=== PATIENT | male | born 1945 | race Caucasian/White ===

== ENCOUNTER 2021-06-04 22:50 | Inpatient (IN) | payer OTHER, MEDICARE ==
[~2021-06-04 22:50] MED LIST: Albuterol/Ipratropium 3.0-0.5 MG/3 ML Neb Soln ONE
[2021-06-04 23:47] LABS: CHLORIDE,CL 102 mEq/L (98-106); SODIUM,NA 144 mEq/L (136-145)
[2021-06-04] MEDS ORDERED: Albuterol/Ipratropium 3.0-0.5 MG/3 ML Neb Soln NEB ONE (23:52)
[2021-06-04] MEDS ORDERED: LORazepam 2 MG/ML Syringe IVPUSH ONE (23:52)
--- NOTE | 2021-06-05 00:01 | EDM.PDOC ---
ED HPI GENERAL MEDICAL PROBLEM - General Chief Complaint: General Stated Complaint: Unresponsive Time Seen by Provider: 06/04/21 22:50 Source of Information: Reports: EMS, Family History Limitations: Reports: Altered Mental Status - History of Present Illness INITIAL COMMENTS - FREE TEXT/NARRATIVE: Michael is a 76 year old male who presents to ER from his home with unresponsivene ss. Significant other states they had supper around 1800 and he "was his normal self". Went in to the bedroom to "use his nebulizer". Checked on him several hours later and found him on the floor unresponsive. EMS was called. First responders noted a pulse of 30 on the scene. Called EMS. Custom Feed Mill Operator Helper noted low pulse on intercept, did give him Atropine, pulse now in the 100s. Remains unresponsive enroute per EMS. On arrival to ER, patient's does have eye blinking, not spontaneously. Tachypnea. Arms stiff, shaking. Purse lip breathing. NIH score difficult to test as does not respond to any verbal or painful stimuli. Onset: Today, Sudden Duration: Hour(s):, Constant Location: Reports: Generalized Associated Symptoms: Reports: Weakness, Other (does not respond to command) Treatments USER EXPERIENCE RESEARCHER: Reports: See EMS Report Other Treatments USER EXPERIENCE RESEARCHER: atropine given - Related Data Allergies Allergy/AdvReac Type Severity Reaction Status Date / Time No Known Allergies Allergy Verified 06/04/21 23:17 Home Meds: Home Meds . [Unable to Verify Home Med List] 06/05/21 [History] Past Medical History Cardiovascular History: Reports: High Cholesterol, Hypertension Respiratory History: Reports: COPD Neurological History: Reports: MS Social & Family History - Tobacco Use Tobacco Use Status *Q: Unknown Ever Used Tobacco ED ROS GENERAL - Review of Systems Review Of Systems: Unable To Obtain Reason Not Obtained: patient unresponsive Constitutional: Denies: Fever (SO is not aware of any fevers, cough, chest congestion. Does get short of breath due to COPD. SO reports that he will get anxious and tachypnic when needing a neb.), Chills ED EXAM, GENERAL - Physical Exam Exam: See Below Exam Limited By: Altered Mental Status General Appearance: Obtunded Eye Exam: Bilateral Eye: Other (pupils 3 mm, unresponsive) Ears: Normal External Exam, Normal TMs Nose: Normal Inspection, Normal Mucosa, No Blood Throat/Mouth: Normal Inspection, Normal Oropharynx Head: Normocephalic Neck: Normal Inspection, Supple, Non-Tender Respiratory/Chest: Lungs Clear, Other (tachypnea) Cardiovascular: Tachycardia Peripheral Pulses: 2+: Radial (L), Radial (R) GI/Abdominal: Normal Bowel Sounds, Soft, Other (had emesis prior to arrival) Extremities: No Pedal Edema, Other (arms rigid, shaky. Does not move to command) Neurological: Unresponsive Skin Exam: Pallor Course - Vital Signs Last Recorded V/S: Last Vital Signs Temp 96.9 F 06/04/21 22:56 Pulse 104 H 06/04/21 22:56 Resp 18 06/04/21 22:56 BP 196/121 H 06/04/21 22:56 Pulse Ox 98 06/04/21 22:56 - Orders/Labs/Meds Orders: Active Orders 24 hr Category Date Time Status Chest 1V Frontal [CR] Stat Exams 06/04/21 23:06 Ordered Head wo Cont [CT] Stat Exams 06/04/21 23:06 Ordered C-REACTIVE PROTEIN [CHEM] Stat Lab 06/04/21 23:25 Received COMPREHENSIVE METABOLIC PN,CMP [CHEM] Stat Lab 06/04/21 23:25 Received CORONAVIRUS COVID-19 RAPID [MOLEC] Stat Lab 06/04/21 23:37 Ordered CREATINE KINASE,CK [CHEM] Stat Lab 06/04/21 23:25 Received D-DIMER QUANTITATIVE [COAG] Stat Lab 06/04/21 23:25 Received INR,PT,PROTHROMBIN TIME [COAG] Stat Lab 06/04/21 23:25 Received LACTATE DEHYDROGENASE,LDH [CHEM] Stat Lab 06/04/21 23:25 Received PRO B-TYPE NATRIUR PEPT,BNPPRO [CHEM] Stat Lab 06/04/21 23:25 Received PTT,PARTIAL THROMBOPLSTIN TIME [COAG] Stat Lab 06/04/21 23:25 Received TROPONIN I HIGH SENSITIVITY [CHEM] Stat Lab 06/04/21 23:25 Received EKG 12 Lead [EK] Stat Ther 06/04/21 23:06 Ordered Labs: Laboratory Tests 06/04/21 Range/Units 23:25 WBC 20.9 H* (4.0-11.0) 10^3/uL RBC 4.84 (4.50-6.00) x10^6/uL Hgb 14.4 (14.0-18.0) g/dL Hct 42.8 (42.0-52.0) % MCV 88.4 (83.0-97.0) fL MCH 29.8 (27.0-32.0) pg MCHC 33.6 (32.0-36.0) g/dL RDW Coeff of Wanda 12.5 (11.0-15.0) % Plt Count 330 (150-400) 10^3/uL Immature Gran % (Auto) 0.3 (0.0-4.9) % Neut % (Auto) 87.4 H (41-71) % Lymph % (Auto) 5.4 L (24-44) % [place] % (Auto) 6.4 (0-10) % Eos % (Auto) 0.1 (0-6) % Baso % (Auto) 0.4 (0-1) % Neut # (Auto) 18.27 H (1.80-8.00) x10^3/uL Lymph # (Auto) 1.14 (0.60-5.00) 10^3/uL [place] # (Auto) 1.34 (0.00-1.50) 10^3/uL Eos # (Auto) 0.03 (0.00-1.50) 10^3/uL Baso # (Auto) 0.09 (0.00-0.50) 10^3/uL Immature Gran # (Auto) 0.06 (0.00-0.49) 10^3/uL Meds: Medications Discontinued Medications Generic Name Dose Route Start Last Admin Trade Name Freq PRN Reason Stop Dose Admin Albuterol/Ipratropium Confirm 06/04/21 22:35 Albuterol/Ipratropium 3.0-0.5 Mg/3 Ml Neb Soln Administered 06/04/21 22:36 Dose 3 ml .ROUTE .STK-MED ONE - Re-Assessments/Exams Free Text/Narrative Re-Assessment/Exam: 06/05/21 2250-Patient arrives per EMS unresponsive, eyes blinking spontaneously. No response to command. Tachypnea. Tachycardic now. Significant other here. Had emesis. Oxygen switched to nasal cannula due as sats 100% with nonrebreather mask. Blood pressure high 2300-Unable to test NIH score as unresponsive. 2310-Contacted patient's sister Sharri is who is patient's DPOA. Relates has end stage COPD, MS and does not want extraordinary measures done on the patient. Stroke code orders. 2345-Spoke again with sister and significant other as noted CT scan with blood. Will await full radiology read. Sister wants patient kept comfortable, Code 3. 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) - Discharge Information *PRESCRIPTION DRUG MONITORING PROGRAM REVIEWED*: No *COPY OF PRESCRIPTION DRUG MONITORING REPORT IN PATIENT PANKAJ: No Sepsis Event Note (ED) - Evaluation Sepsis Screening Result: No Definite Risk - Focused Exam Vital Signs: Vital Signs Temp Pulse Resp BP Pulse Ox 06/04/21 22:56 96.9 F 104 H 18 196/121 H 98 - Problem List & Annotations (1) Hemorrhagic cerebrovascular accident (CVA) SNOMED Code(s): 034288162 Code(s): I61.9 - NONTRAUMATIC INTRACEREBRAL HEMORRHAGE, UNSPECIFIED Status: Acute Priority: High Current Visit: Yes - Problem List Review Problem List Initiated/Reviewed/Updated: Yes - My Orders Last 24 Hours: My Active Orders 06/04/21 23:06 Chest 1V Frontal [CR] Stat Head wo Cont [CT] Stat EKG 12 Lead [EK] Stat 06/04/21 23:25 C-REACTIVE PROTEIN [CHEM] Stat COMPREHENSIVE METABOLIC PN,CMP [CHEM] Stat CREATINE KINASE,CK [CHEM] Stat D-DIMER QUANTITATIVE [COAG] Stat INR,PT,PROTHROMBIN TIME [COAG] Stat LACTATE DEHYDROGENASE,LDH [CHEM] Stat PRO B-TYPE NATRIUR PEPT,BNPPRO [CHEM] Stat PTT,PARTIAL THROMBOPLSTIN TIME [COAG] Stat TROPONIN I HIGH SENSITIVITY [CHEM] Stat 06/04/21 23:37 CORONAVIRUS COVID-19 RAPID [MOLEC] Stat - Assessment/Plan Admission H&P: Please use this note as an admission H&P Last 24 Hours: My Active Orders 06/04/21 23:06 Chest 1V Frontal [CR] Stat Head wo Cont [CT] Stat EKG 12 Lead [EK] Stat 06/04/21 23:25 C-REACTIVE PROTEIN [CHEM] Stat COMPREHENSIVE METABOLIC PN,CMP [CHEM] Stat CREATINE KINASE,CK [CHEM] Stat D-DIMER QUANTITATIVE [COAG] Stat INR,PT,PROTHROMBIN TIME [COAG] Stat LACTATE DEHYDROGENASE,LDH [CHEM] Stat PRO B-TYPE NATRIUR PEPT,BNPPRO [CHEM] Stat PTT,PARTIAL THROMBOPLSTIN TIME [COAG] Stat TROPONIN I HIGH SENSITIVITY [CHEM] Stat 06/04/21 23:37 CORONAVIRUS COVID-19 RAPID [MOLEC] Stat Assessment:: Hemorrhagic CVA Plan: Will admit to inpatient for comfort cares. aware of poor outcome, bleed. Sister also informed. Palliative care.
[2021-06-05] MEDS ORDERED: LORazepam 2 MG/ML Syringe ONE (00:07)
[2021-06-05 00:37] LABS: PTT,PARTIAL THROMBOPLSTIN TIME 22.4 SEC (23.2-32.3)
[2021-06-05] MEDS ORDERED: Ondansetron 4 MG/2 ML SDV IV PRN (00:48)
[2021-06-05] MEDS ORDERED: Morphine 2 MG/ML SYRINGE IVPUSH SCH (00:48)
[2021-06-05] MEDS ORDERED: Morphine 2 MG/ML SYRINGE IVPUSH PRN (00:58)
[2021-06-05] MEDS: LORazepam 2 MG/ML Syringe IVPUSH PRN (06:11)
[2021-06-05] MEDS ORDERED: Sodium Chloride 0.9% 1,000 ML IV SCH (11:00)
[2021-06-05] MEDS: Acetaminophen 650 MG Supp RECTAL PRN (11:33)
--- NOTE | 2021-06-05 11:34 | PCM.PN ---
- General Info Date of Service: 06/05/21 Admission Dx/Problem (Free Text): Hemorrhagic CVA Subjective Update: Patient resting comfortably. Does not open eyes to command but is responding more this am. Does squeeze significant other's hand at times and makes verbalizations. Fever this am. Blood pressure has improved some. Was given Ativan x2 through the night. Telemetry on and does show heart rate to drop at times in to the 40s yet but recovers back to the 100-110 range. Functional Status: Denies: Tolerating Diet, Ambulating - Review of Systems General: Reports: Fever, Weakness, Fatigue, Other (unable to obtain further review of systems as patient does not vocalize to command and what little he does is uncomprehendible) - Patient Data Vitals - Most Recent: Last Vital Signs Temp 100.2 F 06/05/21 10:55 Pulse 70 06/05/21 10:55 Resp 16 06/05/21 10:55 BP 134/90 06/05/21 10:55 Pulse Ox 92 L 06/05/21 10:55 Weight - Most Recent: 138 lb Lab Results Last 24 Hours: Laboratory Results - last 24 hr 06/04/21 06/04/21 06/04/21 Range/Units 23:25 23:25 23:25 WBC 20.9 H* (4.0-11.0) 10^3/uL RBC 4.84 (4.50-6.00) x10^6/uL Hgb 14.4 (14.0-18.0) g/dL Hct 42.8 (42.0-52.0) % MCV 88.4 (83.0-97.0) fL MCH 29.8 (27.0-32.0) pg MCHC 33.6 (32.0-36.0) g/dL RDW Coeff of Wanda 12.5 (11.0-15.0) % Plt Count 330 (150-400) 10^3/uL Immature Gran % (Auto) 0.3 (0.0-4.9) % Neut % (Auto) 87.4 H (41-71) % Lymph % (Auto) 5.4 L (24-44) % [place] % (Auto) 6.4 (0-10) % Eos % (Auto) 0.1 (0-6) % Baso % (Auto) 0.4 (0-1) % Neut # (Auto) 18.27 H (1.80-8.00) x10^3/uL Lymph # (Auto) 1.14 (0.60-5.00) 10^3/uL [place] # (Auto) 1.34 (0.00-1.50) 10^3/uL Eos # (Auto) 0.03 (0.00-1.50) 10^3/uL Baso # (Auto) 0.09 (0.00-0.50) 10^3/uL Immature Gran # (Auto) 0.06 (0.00-0.49) 10^3/uL PT (9.7-12.3) SEC INR (0.92-1.18) APTT (23.2-32.3) SEC D-Dimer, Quantitative 6.59 H (0.00-0.50) Sodium 144 (136-145) mEq/L Potassium 4.0 (3.5-5.0) mEq/L Chloride 102 (98-106) mEq/L Carbon Dioxide 32 (21-32) mmol/L BUN 29 H (7-18) mg/dL Creatinine 1.3 (0.7-1.3) mg/dL Est Cr Clr Drug Dosing 52.29 mL/min Estimated GFR (MDRD) 54 L (>=60) mL/min Glucose 161 H (75-99) mg/dL Calcium 9.0 (8.4-10.1) mg/dL Total Bilirubin 0.4 (0.0-1.0) mg/dL AST 30 (15-37) U/L ALT 47 (12-78) U/L Alkaline Phosphatase 76 (46-116) U/L Lactate Dehydrogenase 194 H (100-190) U/L Creatine Kinase 174 (35-232) U/L Troponin I High Sens 51.4 (<=76) pg/mL C-Reactive Protein < 0.2 L (0.2-0.8) mg/dL NT-Pro-B Natriuret Pep 204 (0-1000) pg/mL Total Protein 7.1 (6.4-8.2) g/dL Albumin 4.0 (3.4-5.0) g/dL SARS CoV-2 RNA Rapid ROSITA (NEGATIVE) 06/04/21 06/04/21 Range/Units 23:25 23:44 WBC (4.0-11.0) 10^3/uL RBC (4.50-6.00) x10^6/uL Hgb (14.0-18.0) g/dL Hct (42.0-52.0) % MCV (83.0-97.0) fL MCH (27.0-32.0) pg MCHC (32.0-36.0) g/dL RDW Coeff of Wanda (11.0-15.0) % Plt Count (150-400) 10^3/uL Immature Gran % (Auto) (0.0-4.9) % Neut % (Auto) (41-71) % Lymph % (Auto) (24-44) % [place] % (Auto) (0-10) % Eos % (Auto) (0-6) % Baso % (Auto) (0-1) % Neut # (Auto) (1.80-8.00) x10^3/uL Lymph # (Auto) (0.60-5.00) 10^3/uL [place] # (Auto) (0.00-1.50) 10^3/uL Eos # (Auto) (0.00-1.50) 10^3/uL Baso # (Auto) (0.00-0.50) 10^3/uL Immature Gran # (Auto) (0.00-0.49) 10^3/uL PT 10.7 (9.7-12.3) SEC INR 0.98 (0.92-1.18) APTT 22.4 L (23.2-32.3) SEC D-Dimer, Quantitative (0.00-0.50) Sodium (136-145) mEq/L Potassium (3.5-5.0) mEq/L Chloride (98-106) mEq/L Carbon Dioxide (21-32) mmol/L BUN (7-18) mg/dL Creatinine (0.7-1.3) mg/dL Est Cr Clr Drug Dosing mL/min Estimated GFR (MDRD) (>=60) mL/min Glucose (75-99) mg/dL Calcium (8.4-10.1) mg/dL Total Bilirubin (0.0-1.0) mg/dL AST (15-37) U/L ALT (12-78) U/L Alkaline Phosphatase (46-116) U/L Lactate Dehydrogenase (100-190) U/L Creatine Kinase (35-232) U/L Troponin I High Sens (<=76) pg/mL C-Reactive Protein (0.2-0.8) mg/dL NT-Pro-B Natriuret Pep (0-1000) pg/mL Total Protein (6.4-8.2) g/dL Albumin (3.4-5.0) g/dL SARS CoV-2 RNA Rapid ROSITA Negative (NEGATIVE) Med Orders - Current: Current Medications Acetaminophen (Acetaminophen 650 Mg Supp) 650 mg RECTAL Q4H PRN PRN Reason: Mild pain/fever Sodium Chloride (Normal Saline) 1,000 mls @ 125 mls/hr IV ASDIRECTED ABDOULAYE Lorazepam (Lorazepam 2 Mg/Ml Syringe) 0.5 mg IVPUSH Q6H PRN PRN Reason: Nausea/Vomiting Last Admin: 06/05/21 06:11 Dose: 0.5 mg Documented by: Morphine Sulfate (Morphine 2 Mg/Ml Syringe) 1 mg IVPUSH Q2H PRN PRN Reason: Pain Last Admin: 06/05/21 01:24 Dose: 1 mg Documented by: Ondansetron HCl (Ondansetron 4 Mg/2 Ml Sdv) 4 mg IV Q4H PRN PRN Reason: Nausea/Vomiting Discontinued Medications Albuterol/Ipratropium (Albuterol/Ipratropium 3.0-0.5 Mg/3 Ml Neb Soln) Confirm Administered Dose 3 ml .ROUTE .STK-MED ONE Stop: 06/04/21 22:36 Last Admin: 06/05/21 00:00 Dose: Not Given Documented by: Albuterol/Ipratropium (Albuterol/Ipratropium 3.0-0.5 Mg/3 Ml Neb Soln) 3 ml NEB ONETIME ONE Stop: 06/04/21 23:53 Last Admin: 06/04/21 23:57 Dose: 3 ml Documented by: Lorazepam (Lorazepam 2 Mg/Ml Syringe) Confirm Administered Dose 2 mg .ROUTE .STK-MED ONE Stop: 06/05/21 00:08 Last Admin: 06/05/21 00:00 Dose: Not Given Documented by: Lorazepam (Lorazepam 2 Mg/Ml Syringe) 0.5 mg IVPUSH ONETIME ONE Stop: 06/04/21 23:53 Last Admin: 06/04/21 23:57 Dose: 0.5 mg Documented by: Morphine Sulfate (Morphine 2 Mg/Ml Syringe) 1 mg IVPUSH Q2H ABDOULAYE Stop: 06/05/21 00:58 Last Admin: 06/05/21 01:06 Dose: Not Given Documented by: - Exam General: Lethargic HEENT: Other (mucous membranes dry) Neck: Supple Lungs: Decreased Breath Sounds (does not inspire to command) Cardiovascular: Tachycardia GI/Abdominal Exam: Normal Bowel Sounds, Soft, Non-Tender Skin: Warm, Dry Neurological: Other (patient more responsive this am. Squeezes my hand to command. Does not open eyes or make any verbalizations. Less rigid than in ER. Moves right arm up at times.) - Patient Data Lab Results Last 24 hrs: Laboratory Results - last 24 hr 06/04/21 06/04/21 06/04/21 Range/Units 23:25 23:25 23:25 WBC 20.9 H* (4.0-11.0) 10^3/uL RBC 4.84 (4.50-6.00) x10^6/uL Hgb 14.4 (14.0-18.0) g/dL Hct 42.8 (42.0-52.0) % MCV 88.4 (83.0-97.0) fL MCH 29.8 (27.0-32.0) pg MCHC 33.6 (32.0-36.0) g/dL RDW Coeff of Wanda 12.5 (11.0-15.0) % Plt Count 330 (150-400) 10^3/uL Immature Gran % (Auto) 0.3 (0.0-4.9) % Neut % (Auto) 87.4 H (41-71) % Lymph % (Auto) 5.4 L (24-44) % [place] % (Auto) 6.4 (0-10) % Eos % (Auto) 0.1 (0-6) % Baso % (Auto) 0.4 (0-1) % Neut # (Auto) 18.27 H (1.80-8.00) x10^3/uL Lymph # (Auto) 1.14 (0.60-5.00) 10^3/uL [place] # (Auto) 1.34 (0.00-1.50) 10^3/uL Eos # (Auto) 0.03 (0.00-1.50) 10^3/uL Baso # (Auto) 0.09 (0.00-0.50) 10^3/uL Immature Gran # (Auto) 0.06 (0.00-0.49) 10^3/uL PT (9.7-12.3) SEC INR (0.92-1.18) APTT (23.2-32.3) SEC D-Dimer, Quantitative 6.59 H (0.00-0.50) Sodium 144 (136-145) mEq/L Potassium 4.0 (3.5-5.0) mEq/L Chloride 102 (98-106) mEq/L Carbon Dioxide 32 (21-32) mmol/L BUN 29 H (7-18) mg/dL Creatinine 1.3 (0.7-1.3) mg/dL Est Cr Clr Drug Dosing 52.29 mL/min Estimated GFR (MDRD) 54 L (>=60) mL/min Glucose 161 H (75-99) mg/dL Calcium 9.0 (8.4-10.1) mg/dL Total Bilirubin 0.4 (0.0-1.0) mg/dL AST 30 (15-37) U/L ALT 47 (12-78) U/L Alkaline Phosphatase 76 (46-116) U/L Lactate Dehydrogenase 194 H (100-190) U/L Creatine Kinase 174 (35-232) U/L Troponin I High Sens 51.4 (<=76) pg/mL C-Reactive Protein < 0.2 L (0.2-0.8) mg/dL NT-Pro-B Natriuret Pep 204 (0-1000) pg/mL Total Protein 7.1 (6.4-8.2) g/dL Albumin 4.0 (3.4-5.0) g/dL SARS CoV-2 RNA Rapid ROSITA (NEGATIVE) 06/04/21 06/04/21 Range/Units 23:25 23:44 WBC (4.0-11.0) 10^3/uL RBC (4.50-6.00) x10^6/uL Hgb (14.0-18.0) g/dL Hct (42.0-52.0) % MCV (83.0-97.0) fL MCH (27.0-32.0) pg MCHC (32.0-36.0) g/dL RDW Coeff of Wanda (11.0-15.0) % Plt Count (150-400) 10^3/uL Immature Gran % (Auto) (0.0-4.9) % Neut % (Auto) (41-71) % Lymph % (Auto) (24-44) % [place] % (Auto) (0-10) % Eos % (Auto) (0-6) % Baso % (Auto) (0-1) % Neut # (Auto) (1.80-8.00) x10^3/uL Lymph # (Auto) (0.60-5.00) 10^3/uL [place] # (Auto) (0.00-1.50) 10^3/uL Eos # (Auto) (0.00-1.50) 10^3/uL Baso # (Auto) (0.00-0.50) 10^3/uL Immature Gran # (Auto) (0.00-0.49) 10^3/uL PT 10.7 (9.7-12.3) SEC INR 0.98 (0.92-1.18) APTT 22.4 L (23.2-32.3) SEC D-Dimer, Quantitative (0.00-0.50) Sodium (136-145) mEq/L Potassium (3.5-5.0) mEq/L Chloride (98-106) mEq/L Carbon Dioxide (21-32) mmol/L BUN (7-18) mg/dL Creatinine (0.7-1.3) mg/dL Est Cr Clr Drug Dosing mL/min Estimated GFR (MDRD) (>=60) mL/min Glucose (75-99) mg/dL Calcium (8.4-10.1) mg/dL Total Bilirubin (0.0-1.0) mg/dL AST (15-37) U/L ALT (12-78) U/L Alkaline Phosphatase (46-116) U/L Lactate Dehydrogenase (100-190) U/L Creatine Kinase (35-232) U/L Troponin I High Sens (<=76) pg/mL C-Reactive Protein (0.2-0.8) mg/dL NT-Pro-B Natriuret Pep (0-1000) pg/mL Total Protein (6.4-8.2) g/dL Albumin (3.4-5.0) g/dL SARS CoV-2 RNA Rapid ROSITA Negative (NEGATIVE) Result Diagrams: 06/04/21 23:25 06/04/21 23:25 Sepsis Event Note - Evaluation Sepsis Screening Result: No Definite Risk - Focused Exam Vital Signs: Vital Signs Temp Pulse Resp BP Pulse Ox 06/05/21 10:55 100.2 F 70 16 134/90 92 L 06/05/21 07:32 101.1 F H 75 20 189/102 H 92 L - Problem List & Annotations (1) Hemorrhagic cerebrovascular accident (CVA) SNOMED Code(s): 824824277 Code(s): I61.9 - NONTRAUMATIC INTRACEREBRAL HEMORRHAGE, UNSPECIFIED Status: Acute Priority: High Current Visit: Yes - Problem List Review Problem List Initiated/Reviewed/Updated: Yes - My Orders Last 24 Hours: My Active Orders 06/04/21 23:06 Chest 1V Frontal [CR] Stat Head wo Cont [CT] Stat EKG 12 Lead [EK] Stat 06/05/21 00:36 Resuscitation Status Routine 06/05/21 00:48 Acetaminophen [Tylenol] 650 mg RECTAL Q4H PRN LORazepam [Ativan] 0.5 mg IVPUSH Q6H PRN Ondansetron [Zofran] 4 mg IV Q4H PRN 06/05/21 00:48 Patient Status [ADT] Routine Cardiac Monitoring [RC] 0800,1999 Oxygen Therapy [RC] .PRN Vital Signs [RC] Q12HR 06/05/21 00:58 Morphine 1 mg IVPUSH Q2H PRN 06/05/21 Breakfast Nothing per Oral Now Diet [DIET] 06/05/21 11:00 Sodium Chloride 0.9% [Normal Saline] 1,000 ml IV ASDIRECTED - Assessment Assessment:: Hemorrhagic CVA - Plan Plan:: Contacted sister who does make decisions at this point for patient as next of kin and informed of mild change in status and questioned on further treatment. Questioned on Code 3 versus Code 2. Informed is running a fever yet, more responsive. WBC last night high. She would like to start IV fluids and observe yet at this point. If continues to become more responsive, may consider further work up at treatment but relates has a history of serious co-morbidities as well. Unsure yet at this point if able to swallow, will not introduce fluids yet at this point. Continue to monitor. Treat fevers with rectal tylenol.
[2021-06-06] MEDS: LORazepam 2 MG/ML Syringe IVPUSH PRN ×2 (00:18→17:56)
[2021-06-06] MEDS: Albuterol/Ipratropium 3.0-0.5 MG/3 ML Neb Soln NEB PRN ×2 (09:37→14:26)
[2021-06-06 11:20] LABS: CHLORIDE,CL 101 mEq/L (98-106); SODIUM,NA 142 mEq/L (136-145)
[2021-06-06] MEDS: Acetaminophen 650 MG Supp RECTAL PRN (11:54)
--- NOTE | 2021-06-06 12:19 | PCM.PN ---
- General Info Date of Service: 06/06/21 Admission Dx/Problem (Free Text): Hemorrhagic CVA Subjective Update: Michael is resting quietly this am. Is responding more verbally today. Answers basic questions and is appropriate. Oriented to person and aware he is in the hospital and it is 2020. Able to identify his significant other. She relates he has told her that he loves her and does know her name when asked. Does not open eyes to command. Will occasionally squeeze your hand when asked. Does raise the right hand from the hand spontaneously at times. Denies pain when asked. Is swallowing water when given a toothette. Still has a low grade fever. Oxygen sats have been in the 90s on room air. Functional Status: Reports: Pain Controlled, Urinating. Denies: Tolerating Diet, Ambulating - Review of Systems General: Reports: Fever, Weakness, Fatigue, Malaise HEENT: Denies: Headaches Pulmonary: Denies: Shortness of Breath Cardiovascular: Denies: Chest Pain Gastrointestinal: Denies: Nausea, Vomiting Skin: Reports: Diaphoresis Neurological: Reports: Weakness - Patient Data Vitals - Most Recent: Last Vital Signs Temp 99.5 F 06/06/21 07:57 Pulse 79 06/06/21 07:57 Resp 36 H 06/06/21 07:57 BP 170/87 H 06/06/21 07:57 Pulse Ox 93 L 06/06/21 07:57 Weight - Most Recent: 138 lb Lab Results Last 24 Hours: Laboratory Results - last 24 hr 06/06/21 06/06/21 06/06/21 Range/Units 10:36 10:36 11:00 WBC 16.5 H (4.0-11.0) 10^3/uL RBC 4.79 (4.50-6.00) x10^6/uL Hgb 14.4 (14.0-18.0) g/dL Hct 41.3 L (42.0-52.0) % MCV 86.2 (83.0-97.0) fL MCH 30.1 (27.0-32.0) pg MCHC 34.9 (32.0-36.0) g/dL RDW Coeff of Wanda 12.7 (11.0-15.0) % Plt Count 289 (150-400) 10^3/uL Immature Gran % (Auto) 0.1 (0.0-4.9) % Neut % (Auto) 87.5 H (41-71) % Lymph % (Auto) 4.5 L (24-44) % [place] % (Auto) 7.8 (0-10) % Eos % (Auto) 0.0 (0-6) % Baso % (Auto) 0.1 (0-1) % Neut # (Auto) 14.39 H (1.80-8.00) x10^3/uL Lymph # (Auto) 0.74 (0.60-5.00) 10^3/uL [place] # (Auto) 1.29 (0.00-1.50) 10^3/uL Eos # (Auto) 0.00 (0.00-1.50) 10^3/uL Baso # (Auto) 0.02 (0.00-0.50) 10^3/uL Immature Gran # (Auto) 0.02 (0.00-0.49) 10^3/uL Sodium 142 (136-145) mEq/L Potassium 3.3 L (3.5-5.0) mEq/L Chloride 101 (98-106) mEq/L Carbon Dioxide 29 (21-32) mmol/L BUN 25 H (7-18) mg/dL Creatinine 0.9 (0.7-1.3) mg/dL Est Cr Clr Drug Dosing 62.79 mL/min Estimated GFR (MDRD) > 60 (>=60) mL/min Glucose 139 H (75-99) mg/dL Calcium 8.6 (8.4-10.1) mg/dL Total Bilirubin 1.5 H (0.0-1.0) mg/dL AST 30 (15-37) U/L ALT 54 (12-78) U/L Alkaline Phosphatase 72 (46-116) U/L Troponin I High Sens 32.3 (<=76) pg/mL C-Reactive Protein 2.8 H (0.2-0.8) mg/dL Total Protein 6.9 (6.4-8.2) g/dL Albumin 3.5 (3.4-5.0) g/dL Urine Color Yellow (YELLOW) Urine Appearance Clear (CLEAR) Urine pH 7.0 (4.5-8.0) Ur Specific Flora 1.025 H (1.003-1.020) Urine Protein 30 H (NEGATIVE) mg/dL Urine Glucose (UA) Negative (NEGATIVE) mg/dL Urine Ketones 80 H (NEGATIVE) mg/dL Urine Occult Blood Trace-intact H (NEGATIVE) Urine Nitrite Negative (NEGATIVE) Urine Bilirubin Negative (NEGATIVE) Urine Urobilinogen 0.2 (0.2-1.0) EU/dL Ur Leukocyte Esterase Negative (NEGATIVE) Urine RBC 0-5 (0-5) /HPF Urine WBC 0-5 (0-5) /HPF Amorphous Sediment Few H (NOT SEEN) /HPF Med Orders - Current: Current Medications Acetaminophen (Acetaminophen 650 Mg Supp) 650 mg RECTAL Q4H PRN PRN Reason: Mild pain/fever Last Admin: 06/06/21 11:54 Dose: 650 mg Documented by: Albuterol/Ipratropium (Albuterol/Ipratropium 3.0-0.5 Mg/3 Ml Neb Soln) 3 ml NEB Q4H PRN PRN Reason: Dyspnea Last Admin: 06/06/21 09:37 Dose: 3 ml Documented by: Sodium Chloride (Normal Saline) 1,000 mls @ 75 mls/hr IV ASDIRECTED ABDOULAYE Last Admin: 06/05/21 11:33 Dose: 125 mls/hr Documented by: Lorazepam (Lorazepam 2 Mg/Ml Syringe) 0.5 mg IVPUSH Q6H PRN PRN Reason: Nausea/Vomiting Last Admin: 06/06/21 00:18 Dose: 0.5 mg Documented by: Morphine Sulfate (Morphine 2 Mg/Ml Syringe) 1 mg IVPUSH Q2H PRN PRN Reason: Pain Last Admin: 06/05/21 01:24 Dose: 1 mg Documented by: Ondansetron HCl (Ondansetron 4 Mg/2 Ml Sdv) 4 mg IV Q4H PRN PRN Reason: Nausea/Vomiting Discontinued Medications Albuterol/Ipratropium (Albuterol/Ipratropium 3.0-0.5 Mg/3 Ml Neb Soln) Confirm Administered Dose 3 ml .ROUTE .STK-MED ONE Stop: 06/04/21 22:36 Last Admin: 06/05/21 00:00 Dose: Not Given Documented by: Albuterol/Ipratropium (Albuterol/Ipratropium 3.0-0.5 Mg/3 Ml Neb Soln) 3 ml NEB ONETIME ONE Stop: 06/04/21 23:53 Last Admin: 06/04/21 23:57 Dose: 3 ml Documented by: Lorazepam (Lorazepam 2 Mg/Ml Syringe) Confirm Administered Dose 2 mg .ROUTE .STK-MED ONE Stop: 06/05/21 00:08 Last Admin: 06/05/21 00:00 Dose: Not Given Documented by: Lorazepam (Lorazepam 2 Mg/Ml Syringe) 0.5 mg IVPUSH ONETIME ONE Stop: 06/04/21 23:53 Last Admin: 06/04/21 23:57 Dose: 0.5 mg Documented by: Morphine Sulfate (Morphine 2 Mg/Ml Syringe) 1 mg IVPUSH Q2H ABDOULAYE Stop: 06/05/21 00:58 Last Admin: 06/05/21 01:06 Dose: Not Given Documented by: - Exam General: Other (patient responsive, oriented to person, year.) HEENT: Other (mucous membranes dry) Neck: Supple Lungs: Clear to Auscultation, Normal Respiratory Effort Cardiovascular: Other (marleny tachy rhythm) GI/Abdominal Exam: Normal Bowel Sounds, Soft, Non-Tender Extremities: Normal Inspection, No Pedal Edema Skin: Warm, Dry Neurological: Other (notable Babinski reflex. Does squeeze hands at times with verbal stimuli. Does not open eyes. does appear to swallow. Answers questions at times when asked.) - Patient Data Lab Results Last 24 hrs: Laboratory Results - last 24 hr 06/06/21 06/06/21 06/06/21 Range/Units 10:36 10:36 11:00 WBC 16.5 H (4.0-11.0) 10^3/uL RBC 4.79 (4.50-6.00) x10^6/uL Hgb 14.4 (14.0-18.0) g/dL Hct 41.3 L (42.0-52.0) % MCV 86.2 (83.0-97.0) fL MCH 30.1 (27.0-32.0) pg MCHC 34.9 (32.0-36.0) g/dL RDW Coeff of Wanda 12.7 (11.0-15.0) % Plt Count 289 (150-400) 10^3/uL Immature Gran % (Auto) 0.1 (0.0-4.9) % Neut % (Auto) 87.5 H (41-71) % Lymph % (Auto) 4.5 L (24-44) % [place] % (Auto) 7.8 (0-10) % Eos % (Auto) 0.0 (0-6) % Baso % (Auto) 0.1 (0-1) % Neut # (Auto) 14.39 H (1.80-8.00) x10^3/uL Lymph # (Auto) 0.74 (0.60-5.00) 10^3/uL [place] # (Auto) 1.29 (0.00-1.50) 10^3/uL Eos # (Auto) 0.00 (0.00-1.50) 10^3/uL Baso # (Auto) 0.02 (0.00-0.50) 10^3/uL Immature Gran # (Auto) 0.02 (0.00-0.49) 10^3/uL Sodium 142 (136-145) mEq/L Potassium 3.3 L (3.5-5.0) mEq/L Chloride 101 (98-106) mEq/L Carbon Dioxide 29 (21-32) mmol/L BUN 25 H (7-18) mg/dL Creatinine 0.9 (0.7-1.3) mg/dL Est Cr Clr Drug Dosing 62.79 mL/min Estimated GFR (MDRD) > 60 (>=60) mL/min Glucose 139 H (75-99) mg/dL Calcium 8.6 (8.4-10.1) mg/dL Total Bilirubin 1.5 H (0.0-1.0) mg/dL AST 30 (15-37) U/L ALT 54 (12-78) U/L Alkaline Phosphatase 72 (46-116) U/L Troponin I High Sens 32.3 (<=76) pg/mL C-Reactive Protein 2.8 H (0.2-0.8) mg/dL Total Protein 6.9 (6.4-8.2) g/dL Albumin 3.5 (3.4-5.0) g/dL Urine Color Yellow (YELLOW) Urine Appearance Clear (CLEAR) Urine pH 7.0 (4.5-8.0) Ur Specific [place] 1.025 H (1.003-1.020) Urine Protein 30 H (NEGATIVE) mg/dL Urine Glucose (UA) Negative (NEGATIVE) mg/dL Urine Ketones 80 H (NEGATIVE) mg/dL Urine Occult Blood Trace-intact H (NEGATIVE) Urine Nitrite Negative (NEGATIVE) Urine Bilirubin Negative (NEGATIVE) Urine Urobilinogen 0.2 (0.2-1.0) EU/dL Ur Leukocyte Esterase Negative (NEGATIVE) Urine RBC 0-5 (0-5) /HPF Urine WBC 0-5 (0-5) /HPF Amorphous Sediment Few H (NOT SEEN) /HPF Result Diagrams: 06/06/21 10:36 06/06/21 11:00 Sepsis Event Note - Evaluation Sepsis Screening Result: No Definite Risk - Focused Exam Vital Signs: Vital Signs Temp Pulse Resp BP Pulse Ox 06/06/21 07:57 99.5 F 79 36 H 170/87 H 93 L - Problem List & Annotations (1) Hemorrhagic cerebrovascular accident (CVA) SNOMED Code(s): 170354074 Code(s): I61.9 - NONTRAUMATIC INTRACEREBRAL HEMORRHAGE, UNSPECIFIED Status: Acute Priority: High Current Visit: Yes - Problem List Review Problem List Initiated/Reviewed/Updated: Yes - My Orders Last 24 Hours: My Active Orders 06/05/21 19:19 RT Aerosol Therapy [RC] .PRN Albuterol/Ipratropium [DuoNeb 3.0-0.5 MG/3 ML] 3 ml NEB Q4H PRN - Assessment Assessment:: Hemorrhagic CVA - Plan Plan:: Contacted sister who does make decisions at this point for patient as next of kin and informed of mild change in status and questioned on further treatment. Questioned on Code 3 versus Code 2. Informed is running a fever yet, more responsive. WBC last night high. She would like to start IV fluids and observe yet at this point. If continues to become more responsive, may consider further work up at treatment but relates has a history of serious co-morbidities as well. Unsure yet at this point if able to swallow, will not introduce fluids yet at this point. Continue to monitor. Treat fevers with rectal tylenol. 06-26-2021 Patient more responsive today, answers are more appropriate, easy to understand. Does follow commands to an extent, will squeeze hands. Will not open eyes to command. Continues to run low grade fever. IV fluids infusing. I did contact the sister in regards to improvement and status and to decide if any further treatment, change of code status is to be considered as blood pressure does remain high, still has fevers. Sister and significant other do want to further treat now as has had a change in status. Contacted Dr. Ng, neurovascular surgeon, at [facility] and spoke with him about patient status, vital signs, lab results today and what further treatment would be warranted at this point. He did review CT scan. 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 Could attempt to determine source of aneurysm/bleed and follow his status as still has a 30% chance of not surviving this at this point. Does recommend blood pressure control to keep systolic blood pressure less than 140. If wanting to change status to a code 2, more supportive care would be done. Again contacted sister and relayed information from the neurovascular surgeon. Does now agree that she would like him transferred for more definitive care as he is now around 36 hours out from the bleed and has survived and is responding more now. [facility] called with information from sister. Currently do not have an available bed to admit him to, waiting on discharges today and possible could accept him later today or tomorrow. Awaiting to converse with hospitalist. 1300-Spoke with Dr. Donovan, hospitalist, given status of patient. Agrees to accept the patient in transfer once bed available. Does recommend hydralazine 10 mg IV every 4 hours to keep blood pressure under 140 and if able to take liquids and swallow, could try giving him the Losartan. They will call us when bed available.
[2021-06-06] MEDS: hydrALAZINE 20 MG/ML SDV IVPUSH PRN ×2 (13:13→16:28)
[2021-06-06] MEDS ORDERED: Losartan 25 MG Tab PO STA (14:55)
[2021-06-06] MEDS ORDERED: Rocuronium 50 MG/5 ML Vial ONE (17:27)
[2021-06-06] MEDS ORDERED: Etomidate 2 MG/ML 10 ML SDV ONE (18:06)
[2021-06-06 18:37] VITALS: BP 163/82; PULSE 65
[2021-06-07] MEDS ORDERED: Losartan 25 MG Tab PO SCH (16:00)
== END 2021-06-06 19:15 | DRG 66 ==
LOC: CC.ED 22:50 → UNDOADMOB 06-05 00:11 → CC.MS 06-05 00:11 → INTOOBSV 06-05 00:11 → OBSVTOIN 06-05 00:11 → CC.MS 06-05 00:35 → OBSVTOIN 06-05 00:35 → UNDODISIN 06-06 19:15
PROVIDERS: ADMIT Physician Assistant Medical; ATTEND Family Medicine
DX: I61.9 Nontraumatic intracerebral hemorrhage, unspecified (principal); E78.00 Pure hypercholesterolemia, unspecified; I10 Essential (primary) hypertension; J44.9 Chronic obstructive pulmonary disease, unspecified; G35 Multiple sclerosis; Z20.822 Contact with and (suspected) exposure to COVID-19
CPT/HCPCS: 36415; 70450; 71045; 80053; 81001; 82550; 83615; 83880; 84484; 85025; 85379; 85610; 85730; 86140; 93005; 96374; 99285-25; A9270-GY; J0360; J2060; J2270; J7030; J7620-GY; U0002